=== PATIENT | male | born 1955 | race Caucasian/White ===

== ENCOUNTER 2018-09-19 07:03 | Inpatient (IN) | payer OTHER ==
[~2018-09-19 07:03] MED LIST: CEFAZOLIN 1 GM INJ; DESFLURANE 15 MIN; LIDOCAINE 2% (SDV) 5 ML INJ; ONDANSETRON 4 MG INJ; PROPOFOL 200 MG INJ
[2018-09-19] MEDS ORDERED: MIDAZOLAM 1 MG/ML 2 ML INJ (11:07)
[2018-09-19] MEDS ORDERED: FENTAnyl 50 MCG/ML VIAL (11:07)
[2018-09-19] MEDS ORDERED: SUCCINYLCHOLINE CHLORIDE 100 MG/5 ML SYG IV (11:08)
[2018-09-19] MEDS ORDERED: ROCURONIUM 50 MG INJ (11:08)
[2018-09-19] MEDS ORDERED: METOCLOPRAMIDE 10 MG INJ (11:08)
[2018-09-19] MEDS ORDERED: PROPOFOL 20 ML (11:08)
[2018-09-19] MEDS ORDERED: DIPHENHYDRAMINE 50 MG INJ IV (11:30)
[2018-09-19] MEDS ORDERED: LEVALBUTEROL (NEB) 1.25 MG/0.5 ML AMP HHN (11:30)
[2018-09-19] MEDS ORDERED: hydrALAzine 20 MG INJ IV (11:30)
[2018-09-19] MEDS: CEFAZOLIN 2 GM/50 ML (PMX) 50 ML IVPB (11:30)
[2018-09-19] MEDS ORDERED: FENTAnyl 50 MCG/ML VIAL IV (11:30)
[2018-09-19] MEDS ORDERED: HYDROmorphONE 1 MG/5 ML IV SYRINGE IV ×3 (11:30)
[2018-09-19] MEDS ORDERED: LABETALOL HCL 20MG INJ IV (11:30)
[2018-09-19] MEDS ORDERED: DEXAMETHASONE 4 MG/ML 5 ML INJ (11:34)
[2018-09-19] MEDS: BUPIVACAINE 0.5%/EPI (SDV) 30 ML INJ (12:05)
[2018-09-19] MEDS: THROMBIN 5000 UNIT VIAL (12:05)
[2018-09-19] MEDS: GELATIN SIZE 100 SPONGE (12:05)
[2018-09-19] MEDS: POLYMYXIN/BACITRACIN 1L IRRIG (12:05)
[2018-09-19] MEDS: HEMOSTATIC MATRIX SYG ZFS (12:06)
[2018-09-19] MEDS: THROMBIN 5000 UNIT VIAL TOP ×2 (12:07)
[2018-09-19] MEDS ORDERED: THROMBIN 5000 UNIT VIAL (12:08)
[2018-09-19] MEDS ORDERED: HYDROmorphONE 2 MG/ML SYG (14:01)
[2018-09-19] MEDS ORDERED: PROCHLORPERAZINE 10 MG TAB PO (15:00)
[2018-09-19] MEDS ORDERED: ONDANSETRON 4 MG INJ IV (15:00)
[2018-09-19] MEDS ORDERED: NALOXONE (0.4 MG/ML) INJ IV (15:00)
[2018-09-19] MEDS ORDERED: ACETAMINOPHEN 325 MG TAB PO (15:00)
[2018-09-19] MEDS ORDERED: AL HYDROX/MG HYDROX/SIMETH 30 ML CUP PO (15:00)
[2018-09-19] MEDS ORDERED: HYDROCODONE/APAP (5/325) TAB PO ×2 (15:00)
[2018-09-19] MEDS ORDERED: NACL 0.9% 3 ML SYG IV (15:00)
[2018-09-19] MEDS: MEPERIDINE 25 MG INJ IV (15:31)
[2018-09-19] MEDS: FENTAnyl 50 MCG/ML VIAL IV (15:32)
[2018-09-19] MEDS: ONDANSETRON 4 MG INJ IV (15:32)
[2018-09-19] MEDS: LACTATED RINGER'S 1,000 ML IV* (16:10)
[2018-09-19] MEDS: HYDROmorphONE 0.2 MG/ML PCA IV (16:10)
[2018-09-19] MEDS: SOD CHLORIDE 0.9% 1,000 ML IV (18:33)
[2018-09-19] MEDS: CEFAZOLIN 1 GM/50 ML (PMX) 50 ML IVPB (18:34)
[2018-09-20] MEDS: CEFAZOLIN 1 GM/50 ML (PMX) 50 ML IVPB ×2 (00:08→05:15)
[2018-09-20] MEDS: SOD CHLORIDE 0.9% 1,000 ML IV (05:16)
[2018-09-20] MEDS: HYDROmorphONE 0.2 MG/ML PCA IV (05:32)
[2018-09-20 06:15] LABS: HEMOGLOBIN 12.3 g/dl (14.0-18.0)
[2018-09-20 06:51] LABS: ANION GAP 6 (5-13); BLOOD UREA NITROGEN 15 mg/dl (7-20); CALCIUM 9.3 mg/dl (8.4-10.2); CARBON DIOXIDE 28 mmol/L (21-31); CHLORIDE 104 mmol/L (97-110); CREATININE 0.86 mg/dl (0.61-1.24); Estimated GFR > 60 mL/min (>60); GLUCOSE 142 mg/dl (70-220); POTASSIUM 4.9 mmol/L (3.5-5.1); SODIUM 138 mmol/L (135-144)
[2018-09-20] MEDS: DOCUSATE SODIUM 100 MG CAP PO (09:06)
== END 2018-09-20 15:40 | disposition home or self-care (01) | DRG 517 ==
LOC: REC 07:03 → MS1 16:21
PROC: 01NB0ZZ Release Lumbar Nerve, Open Approach (ICD-10-PCS; principal; 2018-09-19 11:09)
DX: M48.062 Spinal stenosis, lumbar region with neurogenic claudication (principal); M54.16 Radiculopathy, lumbar region; G89.29 Other chronic pain; E66.01 Morbid (severe) obesity due to excess calories; Z68.34 Body mass index [BMI] 34.0-34.9, adult; F17.200 Nicotine dependence, unspecified, uncomplicated
CPT/HCPCS: 72100; 80048; 85014; 85018; 86850; 86900; 86901; 87086; 97116; 97161